=== PATIENT | female | born 1985 | race African-American/Black ===

== ENCOUNTER 2022-10-23 01:59 | Emergency (ER) | payer MEDICAID, OTHER ==
[~2022-10-23] VITALS: Ht 162.6 cm; Wt 70.0 kg
[2022-10-23 02:02] VITALS: O2SAT 100
[2022-10-23 03:21] LABS: BASOPHILS % 0.7 % (0.0-2.0); EOSINOPHILS % 0.8 % (0.0-5.0); HEMATOCRIT. 41.5 % (36.0-48.0); HEMOGLOBIN. 14.2 g/dL (12.0-16.0); LYMPHOCYTES % 39.2 % (20.0-50.0); MEAN CORPUSCULAR HEMOGLOBIN 29.7 pg (28.0-32.0); MEAN CORPUSCULAR VOLUME 86.8 fL (81.0-99.0); MEAN PLATELET VOLUME 8.1 fl (7.4-10.4); MONOCYTES % 9.3 % (2.0-8.0); PLATELET 242 x1000/uL (130-400); RED BLOOD CELL COUNT 4.79 mill/uL (4.2-5.4); RED CELL DISTRIBUTION WIDTH 13.9 % (11.6-14.6)
[2022-10-23 03:26] LABS: CHLORIDE 111 mEq/L (98-107)
[2022-10-23 03:33] LABS: HCG SCREEN NEGATIVE
[2022-10-23] MEDS ORDERED: IBUP-2028 MT (04:58)
[2022-10-23 05:30] VITALS: BP 112/75; PULSE 73; RESP 16; TEMP 98.7
== END 2022-10-23 08:00 | disposition home or self-care (01) ==
LOC: ER 02:22
DX: R07.89 Other chest pain (principal); R42 Dizziness and giddiness; J45.909 Unspecified asthma, uncomplicated
CPT/HCPCS: 80053; 84703; 83690; 85025; 85379; 84484; 36415; 71045; 99284; Z7610